=== PATIENT | male | born 1990 | race Caucasian/White ===

== ENCOUNTER 2016-05-08 14:52 | Emergency (ER) | payer SELFPAY ==
[~2016-05-08] VITALS: Ht 180.3 cm; Wt 81.8 kg
[~2016-05-08 14:52] MED LIST: ALBU8.5H4 IH; EMTR1TAB12 PO; FEXO1TAB4 PO; RALT400T PO
[2016-05-08 14:59] VITALS: BP 146/73; PULSE 137; RESP 22; O2SAT 98
[2016-05-08] MEDS ORDERED: 0.9% Sodium Chloride 1,000 ML IV ONE (15:26)
[2016-05-08] MEDS ORDERED: Ondansetron 2 mg/mL 2 mL Inj IVPUSH ONE (15:30)
[2016-05-08 16:03] VITALS: BP 146/78; PULSE 127; RESP 28; O2SAT 96
--- NOTE | 2016-05-08 16:26 | ED.REPORT ---
HPI-General Illness Date of Service May 08, 2016 ED Provider: Luis Hoffman MD Pt is a 26 year old male who presents to the ED with concerns for flu-like symptoms that started a couple of days ago. He reports hiccups, nausea, vomiting , fevers, chills, and body aches. Pt denies any sick contacts, diarrhea, chest pain, shortness of breath, rash, or any other symptoms. He reports that he did not get his flu shot this season. Nursing Notes Stated Complaint: FEVER, VOMITING Chief Complaint: FLU/Cold Symptoms Nursing Notes Reviewed: Yes Allergies: Coded Allergies: acetaminophen (Verified Allergy, Severe, hives (IS TAKING HYDROCODONE W / ACETAMINOPHEN), 03/05/15) Scheduled Emtricitabine/Tenofovir 200-300mg (Truvada 200-300 mg) 1 Each Tablet 1 TABLET PO DAILY Fexofenadine/Pseudoephedrine ER (Beryl-D 12 Hour) 1 Each Tab.er.12h 1 EACH PO BID Raltegravir Potassium (Isentress) 400 Mg Tablet 400 MG PO BID Scheduled PRN Albuterol HFA (Albuterol HFA) 8.5 Gm Hfa.aer.ad 1-2 PUFF IH Q4 PRN PRN For Shortness of Breath Ondansetron ODT (Zofran ODT) 4 Mg Tablet 4 MG PO Q4H PRN PRN For Nausea General Time Seen by MD: 15:22 Chief Complaint Multip medical complaints, Not feeling well Hx Obtained From: Patient Arrived By: Walk-in Sudden in Onset?: Yes Onset Occurred: 3 days ago Symptom Duration: Since onset Location: : Head Quality: Painful Severity: Current: Mild Severity: Maximum: Moderate Similar Sx Previous: Yes Past Medical History Past Medical History Reports: Asthma Past Surgical History None Smoking History Current Every Day Smoker, Current Some Day Smoker Social History Alcohol Use: "Social" Drug Use: THC Other Social History: Good social support Ambulatory Status Independent Review of Systems Full Review of Systems Constitutional: Reports: Chills, Fever, Weakness - generalized, Denies: Malaise Respiratory: Denies: Non-productive cough, Shortness of breath, Wheezing Cardiovascular: Denies: Chest pain, Syncope GI: Reports: Nausea, Vomiting, Denies: Abdominal pain, Constipation, Diarrhea Male: Denies Dysuria, Denies Flank pain, Denies Urinary frequency, Denies Urinary urgency Musculoskeletal: Denies: Back pain, Extremity pain, Neck pain Skin: Denies Diaphoresis Neurologic: Reports: Headache, Denies: Change LOC, Dizziness, Seizure, Weakness Complete sys rev & neg: except as marked. Physical Exam Vital Signs Vital Signs Date Time Temp Pulse Resp B/P Pulse Ox O2 Delivery O2 Flow Rate FiO2 05/08/16 16:47 38.1 102 24 146/78 97 Room Air 05/08/16 16:03 39.5 127 28 146/78 96 Room Air 05/08/16 14:59 39.2 137 22 146/73 98 Room Air Initial VS: Reviewed General/Constitutional: Well-developed, Well-nourished Head / Eyes: Atraumatic, Normocephalic, PERRL Neck: Supple, Non-tender, Full range of motion Respiratory: Breath sounds normal, Clear to auscultation, No respiratory distress Cardiovascular: Regular rate & rhythm, Heart sounds normal, Intact distal pulses Abdomen / GI: Soft, Non-tender, No guarding, No rebound, No distention Skin: Warm, Dry, No cyanosis Neurologic: Alert, Oriented, Nonfocal Psychiatric: Mood/affect normal, Behavior normal, Normal thought content ENT: Atraumatic, Airway patent, No peritonsillar abscess Mouth: Positive: Mucous membranes dry Re-Eval/Medical Decision Med Decision/Clinical Course Pt is a 26 year old male who presents to the ED with concerns for flu-like symptoms that started a couple of days ago. He reports hiccups, nausea, vomiting , fevers, chills, and body aches. Pt denies any sick contacts, diarrhea, chest pain, shortness of breath, rash, or any other symptoms. He reports that he did not get his flu shot this season. Upon arrival the patient is around 39.5 and tachycardic in the 120s. He appears generally unwell though nontoxic in appearance and in no apparent distress. He was treated with IV fluids and ibuprofen. His fever improved as well as his tachycardia. He remained hemodynamically stable. There were no findings suggestive of acute surgical intra-abdominal process and his abdominal examination was benign. He did not appear profoundly dehydrated. He was able to tolerate PO after being treated with Zofran for nausea. He reported significant symptomatic improvement. There are no findings suggestive of serious bacterial illness such as pneumonia, meningitis. He is provided with a prescription for Zofran and will continue to take ibuprofen as needed. He is advised to drink plenty of fluids. Follow-up and return precautions were reviewed in detail and he was discharged in good condition. His overall presentation is most consistent with a flulike illness. Source of Hx: Old records Time of Eval: 16:54 Re-Evaluation/Progress Note: Pt is rechecked and informed of his diagnosis and the plan to discharge him at this time. He understands and agrees, all questions are addressed. Counseled Regarding: Diagnosis, Need for follow-up, When/why to return to ED Discharge & Departure Primary Impression: Vomiting Vomiting type: unspecified Vomiting Intractability: unspecified Nausea presence: unspecified Qualified Code: R11.10 - Vomiting, unspecified Additional Impressions: Dehydration Fever Fever type: unspecified Qualified Code: R50.9 - Fever, unspecified Myalgia Disposition: Home Discharge Condition All VS Reviewed: Yes Condition: Stable Patient Instructions: Dehydration (ED) Additional Instructions: Thank you for seeking care at emergency room. It is difficult for us to make definitive diagnoses in the ED but we believe that you are experiencing a flulike illness. Our primary goal today in the ED was to evaluate you for any life-threatening conditions. Your evaluation was reassuring. You will be discharged with a prescription for Zofran, please take as needed. You should follow-up with your primary doctor in the next week. You should return to the ED immediately if you develop worsening symptoms, ongoing fevers, persistent vomiting, cough, shortness of breath, chest pain, lightheadedness, weakness or any other concerning signs or symptoms. Thank you for letting us partake in your care today. Referrals: [facility] (PCP) Oumar Attestation Portions of this note were transcribed by Elise Berg. I, Dr. Hoffman personally performed the history, physical exam and medical decision-making; I reviewed and confirmed the accuracy of the information in the transcribed note. Signed by: Oumar Yao, 05/08/2016 16:58 Luis Hoffman MD May 08, 2016 16:26 JACKIE BERG May 08, 2016 16:36
[2016-05-08] MEDS ORDERED: ONDA4TAB9 PO (16:39)
[2016-05-08 16:47] VITALS: BP 146/78; PULSE 102; RESP 24; O2SAT 97
== END 2016-05-08 16:39 | disposition home or self-care (01) ==
LOC: SED 14:52
DX: R11.10 Vomiting, unspecified (principal); E86.0 Dehydration; R50.9 Fever, unspecified; M79.1 Myalgia; J45.909 Unspecified asthma, uncomplicated; F17.200 Nicotine dependence, unspecified, uncomplicated; Z88.8 Allergy status to other drugs, medicaments and biological substances
CPT/HCPCS: 96374; 99284; J2405; J7030